=== PATIENT | female | born 1980 | race Caucasian/White ===

== ENCOUNTER 2018-11-12 11:37 | Emergency (ER) | payer OTHER ==
[~2018-11-12] VITALS: Ht 167.6 cm; Wt 81.7 kg
[2018-11-12] MEDS ORDERED: PRILOSEC OTC20 MG PO (14:26)
[2018-11-12] MEDS ORDERED: CARAFATE1 GM PO (14:26)
== END 2018-11-12 14:32 | disposition home or self-care (01) ==
LOC: ED 11:37
DX: R10.13 Epigastric pain (principal)
CPT/HCPCS: 80053; 81001; 83690; 84703; 85025; 96374; 99284-25; J1885

== ENCOUNTER 2019-02-14 19:33 | Observation (INO) | payer OTHER ==
[~2019-02-14] VITALS: Ht 167.6 cm; Wt 81.2 kg
--- NOTE | ~2019-02-14 | DS ---
[facility] [address], [place] [address] Draft ADMISSION DATE: 02/14/2019 DISCHARGE DATE: 02/16/2019 REASON FOR ADMISSION: This 38-year-old white woman is from [place], [place], is a patient of KAELA Meraz. The patient has had recurrent bouts of upper abdominal pain. Has been evaluated several times including at [place], [place], where she was hospitalized. Studies have included a CT scan showing pericholecystic fluid. No specific biliary workup was undertaken until an ultrasound performed under the direction of nurse practitioner Ankit. This showed a gallbladder full of sludge. I was called by Ms. Pham on the day of admission seeking assistance. She is directly admitted to the hospital for acute sludge-related cholecystitis. PERTINENT PHYSICAL EXAM: GENERAL: Shows a tall white woman, who looked to be non-systemically toxic. VITAL SIGNS: Temperature is 98.7, pulse 150, blood pressure 125/85, O2 saturations 98%. HEENT: Mucous membranes moist. CHEST: Clear. ABDOMEN: Scaphoid, generally soft. There is tenderness in epigastric and subcostal area. No palpable mass. LABORATORY STUDIES: Showed white count 7.6. Chem profile was normal. Amylase 52. HOSPITAL COURSE: Review of images of gallbladder ultrasound from February 10 showed layering gallbladder sludge and a 16 mm hyperechoic nodule of the liver was noted, considered a hemangioma. She underwent fluid resuscitation and on the following day underwent laparoscopic cholecystectomy with intraoperative cholangiogram. The gallbladder was found to be chronically inflamed. There were no stones. Her postoperative course was rather unremarkable. She soon after operation was able to eat, which certainly was an improvement and her epigastric pain and subcostal pain has resolved. She is discharged home in good condition. DISCHARGE PLAN: She is to walk on a daily basis and is not restricted in her diet particularly. DISCHARGE MEDICATIONS: She will continue with her usual medications, which include BuSpar (buspirone) 50 mg PATIENT NAME: UBALDO CORONADO DISCHARGE SUMMARY DATE OF : 80 REPORT #: [id number] PHYSICIAN: BLAYNE SALGADO MD PCP: JOMAR AGUIAR REPORT IS CONFIDENTIAL AND NOT TO BE RELEASED WITHOUT AUTHORIZATION [facility] [address], [place] [address] Draft p.o. daily. She will use Tylenol 650 mg p.o. q.6 hours as needed for pain as well as Motrin 600 mg p.o. q.6 hours p.r.n. pain. She is to have a limited amount of Percocet 7.5/325, one p.o. q.6 hours p.r.n. pain #5. Recommended continue use of famotidine, Pepcid 20 mg p.o. b.i.d., and Tylenol 650 p.o. q.6 hours p.r.n. pain. DISCHARGE DIAGNOSES: 1. Acute sludge-related cholecystitis, status post laparoscopic cholecystectomy with intraoperative cholangiogram and surgeon-directed fluoroscopy. 2. History of stress/anxiety. 3. Status post laparoscopic cholecystectomy with intraoperative cholangiogram. FOLLOWUP PLAN: She is to return to see me in approximately 4-6 weeks. She will maintain a regular diet. She should lift no more than 20 pounds for 2 weeks. She is permitted and encouraged to shower on a daily basis. MD ZACH Rendon/VERNON /[id number] cc: SOM Rocha Copies: JOMAR AGUIAR ~ PATIENT NAME: UBALDO CORONADO DISCHARGE SUMMARY DATE OF : 80 REPORT #: [id number] PHYSICIAN: BLAYNE SALGADO MD PCP: JOMAR AGUIAR REPORT IS CONFIDENTIAL AND NOT TO BE RELEASED WITHOUT AUTHORIZATION
--- OUTSIDE RECORDS SUMMARY | ~2019-02-14 | XMS | Clinical Summary ---
Demographics + + + | Address | [address] | | | [place] [address] | + + + | Home Phone | | + + + | Preferred Language | Unknown | + + + | Marital Status | | + + + | Moravian Affiliation | Unknown | + + + | Race | Unknown | + + + | Ethnic Group | Unknown | + + + Author + + + | Author | [facility] | | | and [place] | + + + | Organization | [facility] | | | and [place] | + + + | Address | Unknown | + + + | Phone | Unavailable | + + + Support + + +---------+ + | Name | Relationship | Address | Phone | + + +---------+ + | Babatunde Ndiaye | ECON | Unknown | | + + +---------+ + Care Team Providers + +------+ + | Care Cured Meats Supervisor Name | Role | Phone | + +------+ + | No, Physician | PP | Unavailable | + +------+ + Allergies No Known Allergies Medications + + + +---------+------+------+-------+ | Medication | Sig | Dispensed | Refills | Star | End | Statu | | | | | | t | Date | s | | | | | | Date | | | + + + +---------+------+------+-------+ | busPIRone (BUSPAR) | Take 10 mg by mouth | | 0 | | | Activ | | 10 MG tablet | 2 times daily. | | | | | e | + + + +---------+------+------+-------+ | omeprazole | Take 1 capsule by | 60 | 0 | 04/0 | | Activ | | (PRILOSEC) 20 mg | mouth 2 times daily | capsule | | 2/20 | | e | | capsule | (with breakfast & | | | 19 | | | | | dinner). | | | | | | + + + +---------+------+------+-------+ | sucralfate | Take 1 tablet by | 120 | 0 | 04/0 | | Activ | | (CARAFATE) 1 g | mouth 4 times daily. | tablet | | 2/20 | | e | | tablet | | | | 19 | | | + + + +---------+------+------+-------+ | raNITIdine | Take 150 mg by mouth | | 0 | | 04/0 | Disco | | (ZANTAC) 150 mg | 2 times daily. | | | | 2/20 | ntinu | | tablet | | | | | 19 | ed | + + + +---------+------+------+-------+ Active Problems No known active problems Encounters +--------+ + + + + | Date | Type | Specialty | Care Team | Description | +--------+ + + + + | 02/07/ | Emergency | | Bashir Last, | Epigastric pain | | 2018 | | | [employer] | (Primary Dx); RUQ | | | | | | pain; Hemangioma of | | | | | | liver | +--------+ + + + + from Last 3 Months Social History + +-------+ +--------+------+ | Tobacco Use | Types | Packs/Day | Years | Date | | | | | Used | | + +-------+ +--------+------+ | Never Smoker | | | | | + +-------+ +--------+------+ + +---+---+---+ | Smokeless Tobacco: | | | | | Never Used | | | | + +---+---+---+ + + +---------+ + | Alcohol Use | Drinks/We | oz/Week | Comments | | | ek | | | + + +---------+ + | No | | | | + + +---------+ + + + + | Sex Assigned at | Date Recorded | | | | + + + | Not on file | | + + + + + + + | Job Start Date | Occupation | Industry | + + + + | Not on file | Not on file | Not on file | + + + + + + + + | Travel History | Travel Start | Travel End | + + + + + + | No recent travel history available. | + + Last Filed Vital Signs + + + + | Vital Sign | Reading | Time Taken | + + + + | Blood Pressure | 112/74 | 02/07/20192100 PDT | + + + + | Pulse | 69 | 02/07/20192100 PDT | + + + + | Temperature | 35.9 C (96.6 F) | 02/07/20191829 PDT | + + + + | Respiratory Rate | 18 | 02/07/20191829 PDT | + + + + | Oxygen Saturation | 93% | 02/07/20192100 PDT | + + + + | Inhaled Oxygen | - | - | | Concentration | | | + + + + | Weight | 79.4 kg (175 lb) | 02/07/20191829 PDT | + + + + | Height | 165.1 cm (5' 5") | 02/07/20191829 PDT | + + + + | Body Mass Index | 29.12 | 02/07/2019 1830 PDT | + + + + Plan of Treatment + + + + + | Health Maintenance | Due Date | Last Done | Comments | + + + + + | Vaccine: | | | | | Dtap/Tdap/Td (1 - | 0 | | | | Tdap) | | | | + + + + + | Cervical Cancer | | | | | Screening (Pap) | 1 | | | + + + + + | Vaccine: Influenza | | | | | (Season Ended) | 9 | | | + + + + + Procedures + +--------+ + + + | Procedure Name | Priori | Date/Time | Associated Diagnosis | Comments | | | ty | | | | + +--------+ + + + | ED INFORMATION | Routin | 02/07/2019 | | | | EXCHANGE | e | 22:06 PDT | | | + +--------+ + + + +---+--------+ | | | | | Proced | | | ure | | | Note - | | | Artis, | | | Lab In | | | | | | Hlseve | | | n - | | | 02/07/ | | | 2018 | | | 2206 | | | PDT | | | Format | | | ting | | | of | | | this | | | note | | | might | | | be | | | differ | | | ent | | | from | | | the | | | origin | | | al.COL | | | LECTIV | | | E?NOTI | | | FICATI | | | ON?/ | | | | | | 9 | | | 18:11? | | | CLIFF, | | | | | | ONIEL | | | ?MRN: | | | [id number] | | | [id number] | | | riteri | | | a Met | | | 2 | | | Facili | | | ties | | | In 90 | | | DaysSe | | | curity | | | and | | | Safety | | | No | | | recent | | | | | | Securi | | | ty | | | Events | | | | | | curren | | | tly on | | | | | | fileED | | | Care | | | Guidel | | | inesTh | | | ere | | | are | | | curren | | | tly no | | | ED | | | Care | | | Guidel | | | nelli | | | for | | | this | | | patien | | | t. | | | Please | | | check | | | your | | | facili | | | ty's | | | medica | | | l | | | record | | | s | | | system | | | .E.D. | | | Visit | | | Count | | | (12 | | | mo.)Fa | | | cility | | | | | | Visits | | | | | | [facility] | | | al [facility] | | | [facility] | | | al 1 | | | Total | | | 2 | | | Note: | | | Visits | | | | | | indica | | | te | | | total | | | known | | | visits | | | . | | | Recent | | | | | | Emerge | | | ncy | | | Depart | | | ment | | | Visit | | | [facility] | | | yDate | | | Facili | | | ty | | | City | | | State | | | Type | | | Diagno | | | ses or | | | Chief | | | | | | Compla | | | int | | | Apr 2, | | | 2019 | | | [place] | | | [facility] [place] | | | Emerge | | | ncy | | | | | | Abdomi | | | nal | | | Pain | | | | | | Epigas | | | tric | | | pain | | | | | | Right | | | upper | | | quadra | | | nt | | | pain | | | | | | Edgar | | | ioma | | | of | | | intra- | | | abdomi | | | nal | | | struct | | | ures | | | Duane 5, | | | 2019 | | | [facility] | | | [place] | | | [place] | | | Emerge | | | ncy | | | | | | Epigas | | | tric | | | pain | | | Recent | | | | | | Inpati | | | ent | | | Visit | | | [place] | | | yNo | | | record | | | ed | | | inpati | | | ent | | | visits | | | . Care | | | | | | Provid | | | ersThe | | | re are | | | no | | | care | | | provid | | | ers on | | | | | | record | | | at | | | this | | | time. | | | Collec | | | tive | | | Portal | | | This | | | patien | | | t has | | | regist | | | ered | | | at the | | | | | | [facility] | | | al | | | Emerge | | | ncy | | | Depart | | | ment | | | For | | | more | | | inform | | | ation | | | visit: | | | | | | https: | | | //secu | | | [email or web address] | | | ecarep | | | [email or web address] | | | [email or web address] | | | [email or web address] | | | [id number] | | | [id number] | | | [id number] | | | [id number] | | | [id number] | | | [email or web address] | | | andnbs | | | p | | | PLEASE | | | NOTE: | | | 1. | | | Any | | | care | | | recomm | | | endati | | | ons | | | and | | | other | | | clinic | | | al | | | inform | | | ation | | | are | | | provid | | | ed as | | | guidel | | | nelli | | | or for | | | | | | histor | | | ical | | | purpos | | | es | | | only, | | | and | | | provid | | | ers | | | should | | | | | | exerci | | | se | | | their | | | own | | | clinic | | | al | | | judgme | | | nt | | | when | | | provid | | | ing | | | care. | | | 2. | | | You | | | may | | | only | | | use | | | this | | | inform | | | ation | | | for | | | purpos | | | es of | | | treatm | | | ent, | | | paymen | | | t or | | | health | | | care | | | operat | | | ions | | | activi | | | ties, | | | and | | | subjec | | | t to | | | the | | | limita | | | tions | | | of | | | applic | | | able | | | Collec | | | tive | | | Polici | | | es. | | | 3. | | | You | | | should | | | | | | consul | | | t | | | direct | | | ly | | | with | | | the | | | organi | | | zation | | | that | | | provid | | | ed a | | | care | | | guidel | | | ine or | | | other | | | | | | clinic | | | al | | | histor | | | y with | | | any | | | questi | | | ons | | | about | | | additi | | | onal | | | inform | | | ation | | | or | | | accura | | | cy or | | | comple | | | teness | | | of | | | inform | | | ation | | | provid | | | ed.? | | | 2019 | | | Colle[facility] | | | tive | | | Medica | | | l | | | Techn[employer] | | | logies | | | , Inc[employer] | | | - | | | [email or web address] | | | llecti | | | vemedi | | | [email or web address] | | | m | +---+--------+ + +------+ +---+ + | URINALYSIS WITH | STAT | 02/07/2019 | | Results for this | | MICROSCOPIC WITH | | 21:21 PDT | | procedure are in the | | CULTURE IF INDICATED | | | | results section. | + +------+ +---+ + | CT ABDOMEN PELVIS W | STAT | 02/07/2019 | | Results for this | | CONTRAST | | 20:06 PDT | | procedure are in the | | | | | | results section. | + +------+ +---+ + | , SERUM, | STAT | 02/07/2019 | | Results for this | | QUAL | | 18:48 PDT | | procedure are in the | | | | | | results section. | + +------+ +---+ + | LIPASE | STAT | 02/07/2019 | | Results for this | | | | 18:48 PDT | | procedure are in the | | | | | | results section. | + +------+ +---+ + | COMPREHENSIVE | STAT | 02/07/2019 | | Results for this | | METABOLIC PANEL | | 18:48 PDT | | procedure are in the | | | | | | results section. | + +------+ +---+ + | CBC WITH | STAT | 02/07/2019 | | Results for this | | DIFFERENTIAL | | 18:48 PDT | | procedure are in the | | | | | | results section. | + +------+ +---+ + from Last 3 Months Results Urinalysis with Microscopic with Culture if Indicated (02/07/2019 21:21 PDT) + + + + + + | Component | Value | Ref Range | Performed | Pathologist | | | | | At | Signature | + + + + + + | Color | Yellow | Pale Yellow, | [facility] | | | | | Yellow | [facility] | [facility] | | + + + + + + | Clarity | Cloudy (A) | Clear | [facility] | | | | | | [facility] | | + + + + + + | pH, Urine | 9.0 (H) | 5.0 - 7.0 | [facility] | | | | | | [facility] | | + + + + + + | Specific | 1.015 | 1.003 - 1.030 | [facility] | | | [place] | | | [facility] | | [facility] | [facility] | | + + + + + + | Protein, | 15 mg/dL (A) | Negative | [facility] | | | Urine | | | [facility] | [facility] | | + + + + + + | Blood, | Negative | Negative | [facility] | | | Urine | | | [facility] | [facility] | | + + + + + + | Glucose, | Normal | Normal | [facility] | | | Urine | | | [facility] | [facility] | | [facility] | | + + + + + + | Ketones, | 50 mg/dL (A) | Negative | [facility] | | | Urine | | | [facility] | [facility] | | + + + + + + | Bilirubin, | Negative | Negative | [facility] | | | Urine | | | [facility] | [facility] | | + + + + + + | Nitrite, | Negative | Negative | [facility] | | | Urine | | | [facility] | | [facility] | | | [facility] | | + + + + + + | Leukocyte | Negative | Negative | [facility] | | | Esterase, | | | [facility] | | | Urine | | [facility] | | | | | | [facility] | | + + + + + + | Urobilinoge | Normal | 0-1.0 mg/dL | [facility] | | | n, Urine | | | [facility] | | | | | | [facility] | | + + + + + + | WBC UA | 0-2 | <=5 /HPF | [facility] | | | | | | [facility] | [facility] | | + + + + + + | RBC UA | 0-2 | <=5 /HPF | [facility] | | | | | | [facility] | | + + + + + + | SQUAMOUS | Few (A) | None Seen /LPF | [facility] | | | EPITHELIAL | | | [facility] | | | | | [facility] | | + + + + + + | BACTERIA UA | None Seen | None Seen /HPF | [facility] | | | | | | [facility] | | [facility] | | + + + + + + | MUCUS UA | Few (A) | None seen /LPF | [facility] | | | | | | [facility] | [facility] | | + + + + + + | AMORPHOUS | Many (A) | None Seen /HPF | [facility] | | | [facility] | | | [facility] | [facility] | | | [facility] | | + + + + + + | URINE | Urine Culture Not | | [facility] | | | COMMENT | Indicated | | [facility] | | | [facility] | | + + + + + + + + | Specimen | + + | Urine | + + + + + + + | Performing | Address | City/State/Zipcode | Phone Number | | Organization | | | | + + + + + | [facility] | [address] | [place] [address] | [phone] | | [facility] | | | | + + + + + CT Abdomen Pelvis w Contrast (02/07/2019 20:06 PDT) + + | Specimen | + + | | + + + + + | Impressions | Performed At | + + + | IMPRESSION: 1. The gallbladder is distended. This finding may | [facility] | | relate to fasting however are acute or chronic gallbladder process is | | | not excluded. Ultrasound may provide additional information. 2. | | | Edema appearance in the portal triad area. The finding is | | | nonspecific and can be associated with hepatitis as well as biliary | | | dysfunction. 3. Nonspecific left liver lesion. This finding could | | | relate to benign or malignant process. MRI of the abdomen with | | | contrast recommended to further evaluate. 4. Finding compatible with | | | right liver hemangioma. 5. Disc degenerative change L4-5. 6. Facet | | | degenerative change L5-S1. 7. IUD in expected location. . | | | Dictated by: Randy Perrin | | + + + + + + | Narrative | Performed At | + + + | EXAMINATION: CT ABDOMEN PELVIS W CONTRAST HISTORY: ABDOMINAL | [facility] | | PAIN epigastric and ruq COMPARISON STUDY: No comparison. | | | TECHNIQUE: 5 mm axial slices were acquired through the abdomen and | | | pelvis with contrast. DOSE REPORT: CTDIvol: 15.4 mGy. DLP: 755 | | | mGy-cm. Automated exposure control was utilized. FINDINGS: | | | Genitourinary: The kidneys enhance symmetrically. No hydronephrosis | | | or calcified renal collecting system calculi are present. IUD | | | device is present within the endometrial cavity. Follicles noted at | | | the ovaries. Trace volume pelvic free fluid is | | | present. Uterus volume appears within normal limits.. | | | Gastrointestinal: No dilated bowel loops. Normal | | | appendix. Appendix diameter is 6 mm maximally without adjacent | | | inflammatory changes. Gallbladder is distended. Mild hypo | | | attenuation present portal triads regions. The common duct is not | | | dilated. The pancreatic duct is not dilated. At the right liver | | | a peripheral nodular enhancing 11 mm lesion noted. At the left | | | liver a hypoattenuating irregularly marginated 2.7 cm lesion is noted | | | Spleen volume is normal. The adrenal glands are | | | unremarkable. Pancreas appears unremarkable. Stomach is | | | nondistended.. Musculoskeletal: Disc space narrowing at L4-5 with | | | associated endplate spurring and sclerosis. Facet degenerative | | | changes are present at the L5-S1 level. No acute bone finding.. | | | Retroperitoneum: Normal aorta. No adenopathy. Unremarkable | | | retroperitoneal lymph nodes.. Lung base: Clear. Heart size | | | normal.. | | + + + + + | Procedure Note | + + | Artis, Rad Results In - 02/08/2019 0802 PDT EXAMINATION: CT ABDOMEN PELVIS W | | CONTRASTHISTORY:ABDOMINAL PAIN epigastric and ruqCOMPARISON STUDY:No | | comparison.TECHNIQUE:5 mm axial slices were acquired through the abdomen and pelvis with | | contrast.DOSE REPORT:CTDIvol: 15.4 mGy. DLP: 755 mGy-cm. Automated exposure control | | was utilized.FINDINGS:Genitourinary: The kidneys enhance symmetrically. No | | hydronephrosis or calcified renal collecting system calculi are present. IUD device is | | present within the endometrial cavity. Follicles noted at the ovaries. Trace volume | | pelvic free fluid is present. Uterus volume appears within normal | | limits..Gastrointestinal: No dilated bowel loops. Normal appendix. Appendix diameter | | is 6 mm maximally without adjacent inflammatory changes.Gallbladder is distended. Mild | | hypo attenuation present portal triads regions. The common duct is not dilated. The | | pancreatic duct is not dilated.At the right liver a peripheral nodular enhancing 11 mm | | lesion noted.At the left liver a hypoattenuating irregularly marginated 2.7 cm lesion is | | notedSpleen volume is normal. The adrenal glands are unremarkable. Pancreas appears | | unremarkable. Stomach is nondistended..Musculoskeletal: Disc space narrowing at L4-5 | | with associated endplate spurring and sclerosis. Facet degenerative changes are present | | at the L5-S1 level. No acute bone finding..Retroperitoneum: Normal aorta. No | | adenopathy. Unremarkable retroperitoneal lymph nodes..Lung base: Clear. Heart size | | normal..IMPRESSION: IMPRESSION:1. The gallbladder is distended. This finding may relate | | to fasting however are acute or chronic gallbladder process is not excluded. | | Ultrasound may provide additional information.2. Edema appearance in the portal triad | | area. The finding is nonspecific and can be associated with hepatitis as well as | | biliary dysfunction.3. Nonspecific left liver lesion. This finding could relate to | | benign or malignant process. MRI of the abdomen with contrast recommended to further | | evaluate.4. Finding compatible with right liver hemangioma.5. Disc degenerative change | | L4-5.6. Facet degenerative change L5-S1.7. IUD in expected location..Dictated by: | | Randy Perrin | |Spleen volume is normal. The adrenal glands are unremarkable. Pancreas appears unremarkab le. Stomach is nondistended.. | | | |Musculoskeletal: Disc space narrowing at L4-5 with associated endplate spurring and scleros is. Facet degenerative changes are present at the L5-S1 level. No acute bone finding.. | | | |Retroperitoneum: Normal aorta. No adenopathy. Unremarkable retroperitoneal lymph nodes.. | | | |Lung base: Clear. Heart size normal.. | | | |IMPRESSION: | |IMPRESSION: | |1. The gallbladder is distended. This finding may relate to fasting however are acute or c hronic gallbladder process is not excluded. Ultrasound may provide additional information. | |2. Edema appearance in the portal triad area. The finding is nonspecific and can be associ ated with hepatitis as well as biliary dysfunction. | |3. Nonspecific left liver lesion. This finding could relate to benign or malignant process . MRI of the abdomen with contrast recommended to further evaluate. | |4. Finding compatible with right liver hemangioma. | |5. Disc degenerative change L4-5. | |6. Facet degenerative change L5-S1. | |7. IUD in expected location. | | | |. | | | |Dictated by: Randy Perrin | | | | | + + + +---------+ + + | Performing | Address | City/State/Zipcode | Phone Number | | Organization | | | | + +---------+ + + | [facility] | | | | + +---------+ + + CBC with Differential (02/07/2019 18:48 PDT) + + + + + + | Component | Value | Ref Range | Performed | Pathologist | | | | | At | Signature | + + + + + + | WBC | 9.8 | 4.3 - 10.4 K/uL | [facility] | | | | | [facility] | | + + + + + + | RBC | 4.21 | 4.12 - 5.30 | [facility] | | | | | M/uL | [facility] | | | [facility] | | + + + + + + | Hemoglobin | 12.7 | 12.4 - 15.7 | [facility] | | | | | g/dL | [facility] | | | [facility] | | + + + + + + | Hematocrit | 37.8 | 37.7 - 47.0 % | [facility] | | | | | | [facility] | | + + + + + + | MCV | 89.8 | 82.0 - 97.0 fL | [facility] | | | | | | [facility] | | + + + + + + | MCH | 30.2 | 27.1 - 32.3 pg | [facility] | | | | | | [facility] | | + + + + + + | MCHC | 33.6 | 32.0 - 36.9 | [facility] | | | | | g/dL | [facility] | | | [facility] | | + + + + + + | RDW-CV | 13.1 | 0.0 - 17.0 % | [facility] | | | | | | [facility] | [facility] | | + + + + + + | Platelet | 203 | 150 - 450 K/uL | [facility] | | | Count | | | [facility] | | [facility] | | | [facility] | | + + + + + + | MPV | 10.5 | 9.4 - 12.3 fL | [facility] | | | | | | [facility] | | + + + + + + | % | 53.6 | 42.0 - 76.0 % | [facility] | | | Neutrophils | | | [facility] | | [facility] | | + + + + + + | % | 34.9 | 20.0 - 40.0 % | [facility] | | | Lymphocytes | | | [facility] | | [facility] | | + + + + + + | % Monocytes | 9.1 | 3.0 - 13.0 % | [facility] | | | | | | [facility] | [facility] | [facility] | | + + + + + + | % | 1.7 | 0.0 - 7.0 % | [facility] | | | Eosinophils | | | [facility] | [facility] | | [facility] | | + + + + + + | % Basophils | 0.5 | 0.0 - 2.0 % | [facility] | | | | | | [facility] | | [facility] | | [facility] | | + + + + + + | % Immature | 0.2 | 0.0 - 0.5 % | [facility] | | | Granulocyte | | | [facility] | | | s | | | [facility] | | | | | | [facility] | | + + + + + + | Absolute | 5.22 | 2.50 - 8.50 | [facility] | | | Neutrophils | | K/uL | [facility] | | | | | [facility] | | + + + + + + | Absolute | 3.40 | 1.00 - 3.80 | [facility] | | | Lymphocytes | | K/uL | [facility] | | | | | [facility] | | + + + + + + | Absolute | 0.89 (H) | 0.00 - 0.80 | [facility] | | | Monocytes | | K/uL | [facility] | [facility] | | | [facility] | | + + + + + + | Absolute | 0.17 | 0.00 - 0.70 | [facility] | | | Eosinophils | | K/uL | [facility] | [facility] | | | [facility] | | + + + + + + | Absolute | 0.05 | 0.00 - 0.20 | [facility] | | | Basophils | | K/uL | [facility] | | | | | [facility] | | + + + + + + | Absolute | 0.02 | 0.00 - 0.15 | [facility] | | | Immature | | K/uL | [facility] | | | Granulocyte | | | [facility]ITAL | | | s | | | LAB[facility]ATORY | | + + + + + + | % nRBC | 0 | <=0 per 100 | [facility] | | | | | WBC's | [facility] | | | [facility] | | + + + + + + | Absolute | 0.00 | 0.00 - 0.01 | [facility] | | | nRBC | | K/uL | [facility] | | | | | | [facility] | | + + + + + + + + | Specimen | + + | Blood | + + + + + + + | Performing | Address | City/State/Zipcode | Phone Number | | Organization | | | | + + + + + | [facility] | [address] | [place] [address] | [phone] | | [facility] | | | | + + + + + , Serum, Qual (02/07/2019 18:48 PDT) + + + + + + | Component | Value | Ref Range | Performed | Pathologist | | | | | At | Signature | + + + + + + | hCG Screen, | Negative | Negative | [facility] | | | Serum | | | [facility] | | | | | | [facility] | | + + + + + + + + | Specimen | + + | Blood | + + + + + + + | Performing | Address | City/State/Zipcode | Phone Number | | Organization | | | | + + + + + | [facility] | [address] | [place] [address] | [phone] | | [facility] | | | | + + + + + Lipase (02/07/2019 18:48 PDT) + +-------+ + + + | Component | Value | Ref Range | Performed | Pathologist | | | | | At | Signature | + +-------+ + + + | Lipase | 143 | 73 - 393 U/L | [facility] | | | | | | [facility] | | | | | | [facility] | | + +-------+ + + + + + | Specimen | + + | Blood | + + + + + + + | Performing | Address | City/State/Zipcode | Phone Number | | Organization | | | | + + + + + | [facility] | [address] | [place] [address] | [phone] | | [facility] | | | | + + + + + Comprehensive Metabolic Panel (02/07/2019 18:48 PDT) + + + + + + | Component | Value | Ref Range | Performed | Pathologist | | | | | At | Signature | + + + + + + | Na | 141 | 132 - 143 | [facility] | | | | | mmol/L | [facility] | | | | | | [facility] | | + + + + + + | K | 3.4 | 3.3 - 4.9 | [facility] | | | | | mmol/L | [facility] | | | | | | [facility] | | + + + + + + | Cl | 104 | 95 - 108 mmol/L | [facility] | [facility] | [facility] | [facility] | | + + + + + + | CO2 | 28 | 23 - 34 mmol/L | [facility] | [facility] | | [facility] | [facility] | | + + + + + + | Anion Gap | 9 | 7 - 16 mmol/L | [facility] | [facility] | [facility] | [facility] | | + + + + + + | Glucose | 94 | 70 - 110 mg/dL | [facility] | [facility] | [facility] | | [facility] | | + + + + + + | BUN | 13 | 5 - 26 mg/dL | [facility] | | | | [facility] | | | | | | [facility] | | + + + + + + | Creatinine | 0.75 | 0.60 - 1.30 | [facility] | | | | | mg/dL | [facility] | [facility] | | | | | | LABORATORY | | + + + + + + | eGFR if not | >60Comment: GLOMERULAR | >=60 | [facility] | | | | FILTRATION | mL/min/1.73m2 | [facility] | | | [facility] | RATE,ESTIMATED mL/min | | HOSPITAL | | | | /1.77c2Hygn than 60 | | LABORATORY | | | | Chronic kidney | | | | | | disease,if found over a | | | | | | 3-month period.Less than | | | | | | 15 Kidney | | | | | | failureFor | | | | | | Americans,multiply the | | | | | | calculated GFR by 1.21. | | | | | | | | | | + + + + + + | Ca | 9.1 | 8.3 - 10.0 | [facility] | | | | | mg/dL | [facility] | | | | | | LABORATORY | | + + + + + + | Albumin | 3.7 | 3.0 - 4.5 g/dL | [facility] | | | | | | [facility] | | | | | | [facility]ATORY | | + + + + + + | Bilirubin | 0.5 | 0.0 - 1.2 mg/dL | [facility] | | | Total | | | [facility] | | | | | | LAB[facility]ATORY | | + + + + + + | Total | 6.9 | 6.6 - 8.5 g/dL | [facility] | | | Protein | | | [facility] | | | | | | LABORATORY | | + + + + + + | AST | 26 | 0 - 38 U/L | [facility] | | | | | | [facility] | | | | | | [facility]ATORY | | + + + + + + | ALT | 20 | 14 - 59 U/L | [facility] | | | | | | [facility] | | | | | | [facility]AT[facility] | | + + + + + + | Alkaline | 69 | 46 - 116 U/L | [facility] | | | Phosphatase | | | [facility] | | | | | | LAB[facility]ATORY | | + + + + + + | Globulin | 3.2 | 2.4 - 4.5 g/dL | [facility] | | | | | | [facility] | | | | | | [facility]ORY | | + + + + + + | Albumin/Kirti | 1.2 | 0.8 - 2.0 | [facility] | | | bulin Ratio | | | [facility] | | | | | | LAB[facility]ATORY | | + + + + + + | BUN/Creatin | 17.3 | 7.0 - 24.0 | [facility] | | | ine Ratio | | | [facility] | | | | | | LAB[facility]ORY | | + + + + + + + + | Specimen | + + | Blood | + + + + + + + | Performing | Address | City/State/Zipcode | Phone Number | | Organization | | | | + + + + + | [facility] | [address] | [place] [address] | [phone] | | H[facility] | | | | + + + + + from Last 3 Months Insurance + +--------+ +--------+ +---------+--------+ | Payer | Benefi | Subscriber | Effect | Phone | Address | Type | | | t Plan | ID | sarah | | | | | | / | | Dates | | | | | | Group | | | | | | + +--------+ +--------+ +---------+--------+ | [employer] | [employer] | [id number] | 02/08/20 | [phone] | | Medica | | MEDICAID HMO | HEALTH | | 19-Pre | 1 | | id | | | MDCD | | sent | | | | | | [place] | | | | | | + +--------+ +--------+ +---------+--------+ + +--------+ +--------+ + + | Guarantor Name | Accoun | Relation to | Date | Phone | Billing Address | | | t Type | Patient | of | | | | | | | | | | + +--------+ +--------+ + + | Oniel Ndiaye | Person | Self [birth year] | [address] | | | al/[place]erry | | 1981 | [phone] | [address] [place] | | | wade | | | 4 (Home) | [address] | + +--------+ +--------+ + + Advance Directives Patient has advance care planning documents on file. For more information, please contact:[facility] [place] [address]
--- OUTSIDE RECORDS SUMMARY | ~2019-02-14 | XMS | Clinical Summary ---
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 | | | [place] | | | y | | | [...] | | | 2019 | | | [facility] | | | [...] | | | St. | | | [place] | | | y H. | | [...] | | | ent/01 | | | [id number] | | | -[id number] | | | [...] - 1.030 | [facility] | | | [place] | | | [facility] | | | [...] + + | [facility] | [address] | [place] [address] | [phone] | | HOSPITAL LAB[facility]ATORY | | | [...] + + | [facility] | [address] | [place] [address] | [phone] | | HOSPITAL LAB[facility]ATORY | | | [...] + + | [facility] | [address] | [place] [address] | [phone] | | HOSPITAL LAB[facility]ATORY | | | [...] + + | [facility] | [address] | [place] [address] | [phone] | | HOSPITAL LAB[facility]ATORY | | | [...] | mL/min/1.73m2 | [facility] | | | CAMEROONIAN | RATE,ESTIMATED mL/min | | HOSPITAL | | | | /1.01n5Osrw than 60 | | LABORATORY | | [...] + + | [facility] | [address] | [place] [address] | [phone] | | HOSPITAL LAB[facility]ATORY | | | [...] | [employer] | [employer] | [id number] | 02/08/20 | [phone] | | Medica [...] | | al/[place]erry | | 1981 | [phone] | [address] [place] | | | wade | | | 4 (Home) | [address] | + +--------+ +--------+ + + Advance Directives Patient has advance care planning documents on file. For more information, please contact:[facility] [place] [address]
--- OUTSIDE RECORDS SUMMARY | ~2019-02-14 | XMS | Encounter Summary ---
Demographics + + + | Address | [address] | | | [place] [address] | + + + | Home Phone | | + + + | Preferred Language | Unknown | + + + | Marital Status | | + + + | Latter Day Affiliation | Unknown | + + + | Race | Unknown | + + + | Ethnic Group | Unknown | + + + Author + + + | Author | [facility] | | | and [place] | + + + | Organization | [facility] | | | and [place] | [...] Team Providers + +------+ + | Care Boxing And Pressing Supervisor Name | Role | Phone | + +------+ + | No, Physician | PCP | Unavailable | + +------+ + Reason for Visit + + + | Reason | Comments | + + + | Abdominal Pain | | + + + Encounter Details +--------+ + + + + | Date | Type | Department | Care Team | Description | +--------+ + + + + | 02/07/ | Emergency | [facility] | [place], Bashir A, | Epigastric pain | | 2019 | | 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 | + + documented as of this encounter Last Filed Vital Signs + + + [...] | Body Mass Index | 29.12 | 02/07/20191829 PDT | + + + + documented in this encounter Discharge Instructions Instructions Bashir Last NP - 02/07/2019Your labs tonight show no signs of infection and are consistent with worsening GERD along with biliary colic. Start omeprazole twice daily (before breakfast and dinner) x 30 days Start Carafate 1 gram made into a slurry orally before meals and before bed x 30 days. Schedule an appointment with your primary care provider. AttachmentsThe following attachments cannot be sent through Care Everywhere.Abdominal Pain, Adult (Croatian)Tumor, Uncertain Cause (Croatian)documented in this encounter Medications at Time of Discharge + + + +---------+ + + | Medication | Sig | Dispensed | Refills | Start | End Date | | | | | | Date | | + + + +---------+ + + | busPIRone (BUSPAR) | Take 10 mg by mouth | | 0 | | | | 10 MG tablet | 2 times daily. | | | | | + + + +---------+ + + | omeprazole | Take 1 capsule by | 60 | 0 | 02/08/20 | | | (PRILOSEC) 20 mg | mouth 2 times daily | capsule | | 19 | | | capsule | (with breakfast & | | | | | | | dinner). | | | | | + + + +---------+ + + | sucralfate | Take 1 tablet by | 120 | 0 | 02/08/20 | | | (CARAFATE) 1 g | mouth 4 times daily. | tablet | | 19 | | | tablet | | | | | | + + + +---------+ + + documented as of this encounter Plan of Treatment + +--------+ + + | Name | Priori | Associated Diagnoses | Date/Time | | | ty | | | + +--------+ + + | ED INFORMATION EXCHANGE | Routin | | 02/07/2019 22:06 PDT | | | e | | | + +--------+ + + documented as of this encounter Procedures + +--------+ + + + | Procedure Name | Priori | Date/Time | Associated Diagnosis | Comments | | | ty | | | | + +--------+ + + + | URINALYSIS WITH | STAT | 02/07/2019 | | Results for this | | MICROSCOPIC WITH | | 21:21 PDT | | procedure are in the | | CULTURE IF INDICATED | | | | results section. | + +--------+ + + + | CT ABDOMEN PELVIS W | STAT | 02/07/2019 | | Results for this | | CONTRAST | | 20:06 PDT | | procedure are in the | | | | | | results section. | + +--------+ + + + | CBC WITH | STAT | 02/07/2019 | | Results for this | | DIFFERENTIAL | | 18:48 PDT | | procedure are in the | | | | | | results section. | + +--------+ + + + | , SERUM, | STAT | 02/07/2019 | | Results for this | | QUAL | | 18:48 PDT | | procedure are in the | | | | | | results section. | + +--------+ + + + | LIPASE | STAT | 02/07/2019 | | Results for this | | | | 18:48 PDT | | procedure are in the | | | | | | results section. | + +--------+ + + + | COMPREHENSIVE | STAT | 02/07/2019 | | Results for this | | METABOLIC PANEL | | 18:48 PDT | | procedure are in the | | | | | | results section. | + +--------+ + + + documented in this encounter Results Urinalysis with Microscopic with Culture if [...] - 1.030 | [facility] | | | [place] | | | [facility] | | | [...] + + | [facility] | [address] | [place] [address] | [phone] | | HOSPITAL LAB[facility]ATORY | | | [...] | Procedure Note | + + | Doe Holley Results In - 02/08/2019 0802 PDT EXAMINATION: [...] | | | + +---------+ + + , Serum, Qual (02/07/2019 18:48 [...] + + | [facility] | [address] | [place] [address] | [phone] | | HOSPITAL LAB[facility]ATORY | | | [...] + + | [facility] | [address] | [place] [address] | [phone] | | HOSPITAL LAB[facility]ATORY | | | [...] | mL/min/1.73m2 | [facility] | | | [place] | RATE,ESTIMATED mL/min | | HOSPITAL | | | | /1.70s9Clrp than 60 | | LABORATORY | | [...] + + | [facility] | [address] | [place] [address] | [phone] | | HOSPITAL LAB[facility]ATORY | | | | + + + + + CBC with Differential (02/07/2019 18:48 [...] + + | [facility] | [address] | [place] [address] | [phone] | | HOSPITAL LAB[facility]ORY | | | | + + + + + documented in this encounter Visit Diagnoses + + | Diagnosis | + + | Epigastric pain - Primary Abdominal pain, epigastric | + + | RUQ pain Abdominal pain, right upper quadrant | + + | 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 | + + documented in this encounter Administered Medications + +--------+ +--------+------+------+ | Medication Order | MAR | Action | Dose | Rate | Site | | | Action | Date | | | | + +--------+ +--------+------+------+ | aluminum & magnesium | Given | 02/08/20 | 30 mLs | | | | hydroxide-simethicone (MAALOX | | 19 19:03 | | | | | PLUS REGULAR STRENGTH) 200-200-20 | | PDT | | | | | mg/5 mL suspension 30 mL 30 mL, | | | | | | | Oral, ONCE, Tuse 02/07/19 at 1915, | | | | | | | For 1 dose, Shake well., | | | | | | + +--------+ +--------+------+------+ +---+---+ | | | +---+---+ + +-------+ +-------+---+---+ | diphenhydrAMINE (BENADRYL) | Given | 02/08/20 | 25 mg | | | | injection 25 mg 25 mg, | | 19 20:35 | | | | | Intravenous, EVERY 6 HOURS PRN, | | PDT | | | | | Itching, Starting Wed02/07/19 at | | | | | | | 2020 | | | | | | + +-------+ +-------+---+---+ +---+---+ | | | +---+---+ + +-------+ +-------+---+---+ | famotidine (PEPCID) injection | Given | 02/08/20 | 20 mg | | | | 20 mg 20 mg, Intravenous, ONCE, | | 19 19:03 | | | | | 02/07/19 at 1915, For 1 dose, | | PDT | | | | | Dilute 2 mL of famotidine with 8 | | | | | | | mL of normal saline to a final | | | | | | | concentration of 2 mg/mL. | | | | | | | Administer ordered dose over a | | | | | | | period of at least 2 minutes., | | | | | | + +-------+ +-------+---+---+ +---+---+ | | | +---+---+ + +-------+ +---------+---+---+ | iopamidol (ISOVUE-300) 300 | Given | 02/08/20 | 100 mLs | | | | mg/mL injection 100 mL 100 mL, | | 19 20:07 | | | | | Intravenous, ONCE PRN, Other, | | PDT | | | | | Starting 02/07/19 at 2006, For | | | | | | | 1 dose, Cat Scanner | | | | | | + +-------+ +---------+---+---+ +---+---+ | | | +---+---+ + +-------+ +-------+---+---+ | ketorolac (TORADOL) injection | Given | 02/08/20 | 15 mg | | | | 15 mg 15 mg, Intravenous, ONCE, | | 19 19:23 | | | | | 02/07/19 at 1945, For 1 dose | | PDT | | | | + +-------+ +-------+---+---+ +---+---+ | | | +---+---+ + +-------+ +--------+---+---+ | lidocaine (XYLOCAINE) 2% | Given | 02/08/20 | 15 mLs | | | | viscous solution 15 mL 15 mL, | | 19 19:03 | | | | | Mouth/Throat, ONCE, Wed02/07/19 at | | PDT | | | | | 1915, For 1 dose, Patient should | | | | | | | not swallow more than 60 mL in | | | | | | | any 24 hour period., | | | | | | + +-------+ +--------+---+---+ +---+---+ | | | +---+---+ + +-------+ +-------+---+---+ | metoclopramide (REGLAN) 5 mg/mL | Given | 02/08/20 | 10 mg | | | | injection 10 mg 10 mg, | | 19 20:35 | | | | | Intravenous, ONCE, e 02/07/19 at | | PDT | | | | | 2045, For 1 dose, Protect from | | | | | | | light., | | | | | | + +-------+ +-------+---+---+ +---+---+ | | | +---+---+ + +-------+ +------+---+---+ | ondansetron (ZOFRAN) injection | Given | 02/08/20 | 4 mg | | | | 4 mg 4 mg, Intravenous, EVERY 1 | | 19 19:03 | | | | | HOUR PRN, Nausea, Vomiting, | | PDT | | | | | Starting Wed02/07/19 at 1849, For | | | | | | | 2 doses | | | | | | + +-------+ +------+---+---+ +---+---+ | | | +---+---+ + +---------+ +--------+-------+---+ | sodium chloride 0.9% (NS) bolus | New Bag | 02/08/20 | 1,000 | 2000 | | | 1,000 mL 1,000 mL, Intravenous, | | 19 19:06 | mLs | mL/hr | | | Administer over 30 Minutes, | | PDT | | | | | ONCE, 02/07/19 at 1915, For 1 | | | | | | | dose | | | | | | + +---------+ +--------+-------+---+ +---+---+ | | | +---+---+ documented in this encounter
--- OUTSIDE RECORDS SUMMARY | ~2019-02-14 | XMS | Encounter Summary ---
Demographics + + + | Address | [address] | | | [place] [address] | + + + | Home Phone | | + + + | Preferred Language | Unknown | + + + | Marital Status | | + + + | Jewish Affiliation | Unknown | + + + | Race | Unknown | + + + | Ethnic Group | Unknown | + + + Author + + + | Author | [facility] | | | and [place] | + + + | Organization | [facility] | | | and Brentana [...] Team Providers + +------+ + | Care Sludge Filtration Attendant Name | Role | Phone | + [...] 02/07/ | Emergency | [facility] | [place], Bashir A, | Epigastric pain | | 2019 | | 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 [address] | (Primary Dx); RUQ | | | | CENTER [address] | [place] | pain; Hemangioma of | | | | [place] | [address] | liver | | | | [address] | | | | | | [phone] | | | +--------+ + + + [...] be sent through Care Everywhere.Abdominal Pain, Adult (Australian)Tumor, Uncertain Cause (Australian)documented in this encounter Medications at Time of [...] - 1.030 | [facility] | | | [place] | | | [facility] | | | [...] + + | [facility] | [address] | [place] [address] | [phone] | | HOSPITAL LAB[facility]ATORY | | | [...] + + | [facility] | [address] | [place] [address] | [phone] | | HOSPITAL LAB[facility]ATORY | | | [...] + + | [facility] | [address] | [place] [address] | [phone] | | HOSPITAL LAB[facility]ATORY | | | [...] | mL/min/1.73m2 | [facility] | | | [place] | RATE,ESTIMATED mL/min | | HOSPITAL | | | | /1.22x1Ntzu than 60 | | LABORATORY | | [...] 3.7 | 3.0 - 4.5 g/dL | [facility] | | | | | | [facility] [...] + + | [facility] | [address] | [place] [address] | [phone] | | HOSPITAL LABORATORY | | | [...] + + | [facility] | [address] | [place] [address] | [phone] | | HOSPITAL LABORATORY | | | [...]
[~2019-02-14 19:33] MED LIST: CARAFATE1 GM PO; PRILOSEC OTC20 MG PO
[2019-02-14] MEDS ORDERED: BUSPIRONE HCL15 MG PO (20:00)
[2019-02-14] MEDS ORDERED: DICLOFENAC SODI50 MG PO (20:01)
--- NOTE | 2019-02-15 11:11 | HP ---
[facility] [address], [place] [address] Signed ADMISSION DATE: 02/14/2019 REASON FOR ADMISSION: Probable acute cholecystitis with biliary sludge. HISTORY OF PRESENT ILLNESS: This 38-year-old white woman is a patient of KAELA Meraz. I was called by Ms. Aguiar late in the day seeking assistance with the patient, who is considered to have acute cholecystitis with biliary sludge. The patient is longstanding patient of Ms. Aguiar and has been bothered by epigastric and right upper abdominal pain for quite some time. She has in recent times moved to [facility], where her is from, closer to her mother in [place] and her 's mother in [facility]. 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 She has been having symptoms of vague abdominal pain, which has been going on episodically for a number of years. Notably, she has two children, ages 4 and 5. She does have a mother with biliary problems who has not proceeded to cholecystectomy. She has been hospitalized in [place] and in [place] for this problem and a CT scan was recently done in [facility] while hospitalized, which showed pericholecystic fluid, but no sign of obvious gallstones. No surgical consultation was apparently undertaken. She was advised to follow up with her primary provider in [place]. She underwent a gallbladder ultrasound on February 10, 2019 (Wednesday), which confirmed a nondilated hydropic gallbladder, but 3/4 filled with sludge. There was a nodular focus in the wall of fundus of the gallbladder consistent with adenomyomatosis. The gallbladder wall was irregular and thickened measuring 3.2 mm. Carmichael sign was positive. I agreed to accept the patient for direct admission for presumed acute calculous cholecystitis. The patient was empirically treated with PPI type medication in the past. This was only of variable benefit apparently. Note is made of an emergency room note at [facility] by Dr. Eduard Valdez at which time she presented with epigastric and right upper abdominal pain and a known history of reflux. She is considered to have a low index of suspicion for gallbladder problem as her liver enzymes were normal. She was advised to discontinue her Motrin that she was taking. Electronically Signed By: BLAYNE SALGADO MD 02/15/19 1111 PATIENT NAME: UBALDO CORONADO HISTORY AND PHYSICAL DATE OF : 80 REPORT #: [id number] PHYSICIAN: BLAYNE SALGADO MD PCP: JOMAR AGUIAR REPORT IS CONFIDENTIAL AND NOT TO BE RELEASED WITHOUT AUTHORIZATION [facility] [address], [place] [address] Signed PAST MEDICAL HISTORY: Significant only for daily marijuana use. She no longer smokes cigarettes. She does not drink alcohol frequently. SOCIAL HISTORY: She is . Her was in the [employer] previously, now in [employer]. They have two children. 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 REVIEW OF SYSTEMS: She denies any dysphagia or hematemesis. Denies any hematuria. Her pain is primarily in the epigastric area, some back pain episodically. She has had nausea. She ate three meatballs earlier in the evening, which caused severe epigastric pain. PHYSICAL EXAMINATION: GENERAL: A tall white woman, who looks not to be systemically toxic in any way. VITAL SIGNS: Temperature is 98.7, pulse is 50, blood pressure 125/85, O2 saturation is 98%. HEENT: Mucous membranes are dry. Trachea is midline. There is no thyromegaly. CHEST: Clear. HEART: Regular without murmur. ABDOMEN: Scaphoid, generally soft, but there is tenderness in the epigastric and subcostal area. There is no palpable mass. EXTREMITIES: Show no clubbing, cyanosis, or edema. LABORATORY DATA: Lab studies obtained this evening show white count of 7.6, hematocrit 39.5, platelets 195,000. Chem profile essentially normal. Creatinine 0.82. Liver enzymes normal. Lactate dehydrogenase is 226, amylase 52. Urine test is negative. I do not see evidence of beta-HCG having been obtained, though has been ordered. DIAGNOSTIC DATA: Review of images of gallbladder ultrasound from February 10 show layering gallbladder sludge. A 16 mm hyperechoic nodule representing hemangioma is noted. A left liver nodule was not visualized as had been seen on ultrasound. ASSESSMENT: The patient has acute cholecystitis with sludge. The diagnosis is not mysterious at this point. I would recommend additional fluid resuscitation, parenteral antibiotics, and consideration for cholecystectomy preferably tomorrow. I discussed with her the pathophysiology of biliary disease and recommendation of treatment to include laparoscopic cholecystectomy, possibly open procedure. The risks of bleeding, infection, bile duct injury, need for open procedure, need for common duct exploration, Electronically Signed By: BLAYNE SALGADO MD 02/15/19 1111 PATIENT NAME: UBALDO CORONADO HISTORY AND PHYSICAL DATE OF : 80 REPORT #: [id number] PHYSICIAN: BLAYNE SALGADO MD PCP: JOMAR AGUIAR REPORT IS CONFIDENTIAL AND NOT TO BE RELEASED WITHOUT AUTHORIZATION [address], [place] [address] Signed and of course, misdiagnosis, failure of diagnosis, or need for other indicated procedures was all reviewed. She understands. We will try to set this up tomorrow morning. MD ZACH Rendon/VERNON /[id number] cc: SOM Rocha Copies: JOMAR AGUIAR ~ Electronically Signed By: BLAYNE SALGADO MD 02/15/19 1111 PATIENT NAME: UBALDO CORONADO HISTORY AND PHYSICAL DATE OF : [birth year] REPORT #: [id number] PHYSICIAN: BLAYNE SALGADO MD PCP: JOMAR AGUIAR REPORT IS CONFIDENTIAL AND NOT TO BE RELEASED WITHOUT AUTHORIZATION
[2019-02-15] MEDS ORDERED: OMEPRAZOLE20 M1 PO (15:40)
[2019-02-15] MEDS ORDERED: CARAFATE1 GM PO ×2 (15:41→15:42)
[2019-02-16] MEDS ORDERED: IBUPROFEN600 MG PO (10:40)
[2019-02-16] MEDS ORDERED: TYLENOL325 MG PO (10:41)
[2019-02-16] MEDS ORDERED: OXYCODON-ACETA1 EAC2 PO (10:41)
[2019-02-16] MEDS ORDERED: PERCOCET 7.5-31 EACH PO (12:46)
--- NOTE | 2019-02-17 09:42 | OR ---
[facility] [address] [place], [place] [address] Signed DATE OF OPERATION: 02/15/2019 SURGEON: Blayne Salgado MD PREOPERATIVE DIAGNOSIS: Acute cholecystitis with biliary sludge. POSTOPERATIVE DIAGNOSIS: Acute cholecystitis with biliary sludge. PROCEDURE PERFORMED: 1. Laparoscopic cholecystectomy with intraoperative cholangiogram. 2. Surgeon-directed fluoroscopy. ANESTHESIA: General endotracheal, Zaida Burak, TERADATA ARCHITECT, and local 10 mL of 0.25% Marcaine with epinephrine. INDICATION: This 38-year-old white woman is a patient of KAELA Meraz, who has had chronic recurrent epigastric and right subcostal pain worsened after fatty food. She has been recently evaluated with gallbladder ultrasound, which showed biliary sludge filling 3/4 of the gallbladder. This was on February 10. The patient has been evaluated at [facility] as well as in [place], [place], and even hospitalized there with a CT scan finding showing a pericholecystic fluid, but no apparent consideration for cholecystitis. She is admitted directly to the hospital by me yesterday upon referral of KAELA Mancilla, for acute cholecystitis. She has been fluid resuscitated, given intravenous antibiotics, and so forth, is now to undergo cholecystectomy for acute cholecystitis with sludge. The patient understands risks of bleeding, infection, bile duct injury, need for open procedure, and other unforeseen complications and wished to proceed. FINDINGS: The gallbladder was chronically inflamed. The liver was entirely normal. Gallbladder was somewhat distended. The bile duct was easily visualized and unharmed and somewhat dilated itself. Gallbladder was excised without problem, opened on the back table, and found to have chronic inflammatory change of the mucosa, but no sign of neoplasm or stones. Cholangiogram was normal as well. I did not appreciate much sludge in the contents of the gallbladder that is noted. Electronically Signed By: BLAYNE SALGADO MD 02/17/19 0942 PATIENT NAME: UBALDO CORONADO OPERATIVE REPORT DATE OF : 80 REPORT #: [id number] PHYSICIAN: BLAYNE SALGADO MD PCP: JOMAR AGUIAR REPORT IS CONFIDENTIAL AND NOT TO BE RELEASED WITHOUT AUTHORIZATION [facility] [address] [place], [place] [address] Signed DESCRIPTION OF PROCEDURE: The patient was brought to the operating room, given general endotracheal anesthetic. Preoperative antibiotic Ancef was given including a dose immediately preoperatively. Sequential compression device stockings were used and heparin subcutaneously administered. The abdomen was prepared with chlorhexidine solution and draped sterilely. An infraumbilical incision was made and using an open Cinthya cannula technique pneumoperitoneum was achieved to a level of 14 mmHg of carbon dioxide gas. Intraabdominal inspection showed no sign of ascites or carcinomatosis. The gallbladder was elevated cephalad. A few adhesions to the undersurface were taken down with blunt and electrocautery dissection. The infundibulum of the gallbladder was retracted laterally and using blunt electrocautery dissection the triangle of Calot was dissected free. A prominent common bile duct was noted and care was taken to avoid harm to it. There was a small amount of bleeding in the junction of the triangle of Calot, which was ultimately secured with clips. Ultimately, the cystic duct was well defined and a clip applied across the gallbladder cystic duct junction and transverse choledochotomy was made in the cystic duct showing egress of clear bile from the cystic duct. Using an Madden type cholangiocatheter, intraoperative cholangiography was undertaken showing free flow of contrast in biliary tree with prompt emptying into the duodenum. Retrograde flow into the proximal biliary tree was ultimately seen as well. The cystic duct was moderate in size. There was no sign of biliary anomaly. Catheter was removed and the cystic duct was triply clipped and divided. The gallbladder dissected free in a retrograde fashion using electrocautery. The gallbladder was extracted through the infraumbilical port site without problem, opened on the back table, and found to have chronic inflammatory change in mucosa, but no sign of stone and no thick sludge had been anticipated based on ultrasound. Irrigation was undertaken in subhepatic space and good hemostasis was noted. The trocar was removed under direct visualization showing no sign of bleeding. The infraumbilical fascial incision was reapproximated with interrupted 0 Vicryl suture. All wounds were copiously irrigated with saline solution and skin closed with interrupted 3-0 Vicryl after applying 10 mL of 0.25% Marcaine with epinephrine. The patient has tolerated the procedure well. BLOOD LOSS: 25 mL. COUNTS: Sponge, needle, and instrument counts reported as correct x3. Electronically Signed By: BLAYNE SALGADO MD 02/17/19 0942 PATIENT NAME: UBALDO CORONADO OPERATIVE REPORT DATE OF : 80 REPORT #: [id number] PHYSICIAN: BLAYNE SALGADO MD PCP: JOMAR AGUIAR REPORT IS CONFIDENTIAL AND NOT TO BE RELEASED WITHOUT AUTHORIZATION [address] [address] Signed Blayne Salgado MD JM/MODL /[id number] cc: SOM Rocha Copies: JOMAR AGUIAR ~ Electronically Signed By: BLAYNE SALGADO MD 02/17/19 0942 PATIENT NAME: UBALDO CORONADO NATALIE OPERATIVE REPORT DATE OF : 80 REPORT #: [id number] PHYSICIAN: BLAYNE SALGADO MD PCP: JOMAR AGUIAR REPORT IS CONFIDENTIAL AND NOT TO BE RELEASED WITHOUT AUTHORIZATION
== END 2019-02-16 13:15 | disposition home or self-care (01) ==
LOC: MS 19:33 → EDSTATUS 02-15 09:37 → MS 02-16 13:15
PROVIDERS: ADMIT Surgery
PROC: BF101ZZ Fluoroscopy of Bile Ducts using Low Osmolar Contrast (ICD-10-PCS; 2019-02-15)
PROC: 0FT44ZZ Resection of Gallbladder, Percutaneous Endoscopic Approach (ICD-10-PCS; principal; 2019-02-15 16:30)
DX: K81.2 Acute cholecystitis with chronic cholecystitis (principal); Z87.891 Personal history of nicotine dependence
CPT/HCPCS: 00790; 74300; 80053; 81001; 82150; 82247; 82465; 83615; 84100; 84478; 84550; 84703; 85025; 96361; 96372; 96374; 96375; 96376; G0378; G0379; J0131; J0690; J1100; J1644; J1885; J2250; J2270; J2405; J3010; J3475; J7120; Q9967